=== PATIENT | female | born 1990 | race Caucasian/White ===

== ENCOUNTER 2022-11-23 21:45 | Emergency (ER) | payer BC ==
[2022-11-23 22:11] VITALS: BP 113/73; PULSE 88; RESP 18; TEMP 98.2; BMI 23.3
== END 2022-11-23 23:16 | disposition home or self-care (01) ==
LOC: JERFT 21:45 → JER 21:45 → JERFT 23:16
DX: N64.4 Mastodynia (principal)
CPT/HCPCS: 99282-25